=== PATIENT | female | born 1995 | race Caucasian/White ===

== ENCOUNTER 2019-03-29 18:21 | Emergency (ER) | payer OTHER ==
[~2019-03-29] VITALS: Ht 170.2 cm; Wt 79.5 kg
[~2019-03-29 18:21] MED LIST: CLIN-96 PO
[2019-03-29] MEDS ORDERED: iohexol 300mg/ml 100ml inj. ONE (19:01)
[2019-03-29 19:17] LABS: BASOPHILS % (AUTO) 0.5 % (0-1); EOSINOPHILS # (AUTO) 0.2 X10'3 (0-0.9); EOSINOPHILS % (AUTO) 2.9 % (0-6); HEMATOCRIT 36.7 % (35.0-45.0); HEMOGLOBIN 12.2 g/dl (12.0-16.0); LYMPHOCYTES # (AUTO) 2.4 X10'3 (1.1-4.8); LYMPHOCYTES % (AUTO) 31.9 % (21-51); MEAN CORPUSCULAR HGB CONC 33.2 g/dL (33.0-36.5); MEAN CORPUSCULAR VOLUME 81.4 FL (78-98); MEAN PLATELET VOLUME 9.3 FL (7.4-10.4); MONOCYTES # (AUTO) 0.7 X10'3 (0-0.9); MONOCYTES % (AUTO) 8.9 % (2-12); NEUTROPHILS # (AUTO) 4.2 X10'3 (1.8-7.7); NEUTROPHILS % (AUTO) 55.8 % (42-75); PLATELET COUNT 265 X10'3 (140-440); RED BLOOD COUNT 4.51 X10'6 (4.20-5.60); RED CELL DISTRIBUTION WIDTH 13.9 % (11.5-14.5); WHITE BLOOD COUNT 7.6 X10'3 (4.5-11.0)
[2019-03-29] MEDS ORDERED: ketorolac trometh. 30mg/ml inj. IM ONE (19:25)
[2019-03-29] MEDS: ketorolac trometh. 30mg/ml inj. IV ONE ×2 (19:26→19:29)
[2019-03-29 19:30] LABS: ALANINE AMINOTRANSFERASE 32 U/L (12-78); ALBUMIN 3.6 G/DL (3.4-5.0); ALKALINE PHOSPHATASE 92 IU/L (46-116); ANION GAP 9 (8-16); ASPARTATE AMINO TRANSFERASE 14 U/L (10-37); BILIRUBIN,TOTAL 0.3 MG/DL (0.1-1.0); BLOOD UREA NITROGEN 9 MG/DL (7-18); CALCIUM 8.6 MG/DL (8.5-10.1); CHLORIDE 109 MMOL/L (99-107); CREATININE 0.75 MG/DL (0.40-0.90); GLUCOSE 87 MG/DL (70-104); POTASSIUM 3.8 MMOL/L (3.5-5.1); SODIUM 140 MMOL/L (135-145); TOTAL CARBON DIOXIDE 21.8 MMOL/L (24-32); TOTAL PROTEIN 7.3 G/DL (6.4-8.2); eGFR > 90 ML/MIN
[2019-03-29 19:34] LABS: HCG SERUM QL NEGATIVE
[2019-03-29] MEDS ORDERED: IBUP-1985 PO (21:06)
[2019-03-29 21:15] VITALS: BP 122/69
== END 2019-03-29 21:17 | disposition home or self-care (01) ==
LOC: ER 18:21
DX: M54.2 Cervicalgia (principal); R10.31 Right lower quadrant pain; R10.11 Right upper quadrant pain; M54.9 Dorsalgia, unspecified; Z86.69 Personal history of other diseases of the nervous system and sense organs; Z88.0 Allergy status to penicillin; Z88.1 Allergy status to other antibiotic agents; Z79.2 Long term (current) use of antibiotics
CPT/HCPCS: 36415; 71045; 72125; 74177; 80053; 84703; 85025; 96372; 99284; J1885; Q9967

== ENCOUNTER 2023-04-20 09:40 | Emergency (ER) | payer MEDICAID, OTHER ==
[~2023-04-20] VITALS: Ht 172.7 cm; Wt 87.6 kg
[~2023-04-20 09:40] MED LIST changes: -CLIN-96 PO; +CLIN-97 PO; +IBUP-1985 PO
[2023-04-20 09:50] VITALS: BP 129/80
[2023-04-20] MEDS ORDERED: ketorolac tromethamine 15mg/ml inj. IM ONE (11:25)
[2023-04-20] MEDS ORDERED: CYCL-1 PO (12:38)
== END 2023-04-20 12:46 | disposition home or self-care (01) ==
LOC: ER 09:40
DX: S39.012A Strain of muscle, fascia and tendon of lower back, initial encounter (principal); Z88.0 Allergy status to penicillin; Z88.1 Allergy status to other antibiotic agents; Z79.899 Other long term (current) drug therapy; G40.909 Epilepsy, unspecified, not intractable, without status epilepticus; X58.XXXA Exposure to other specified factors, initial encounter; Y93.89 Activity, other specified; Y92.89 Other specified places as the place of occurrence of the external cause; Y99.8 Other external cause status
CPT/HCPCS: 72100; 96372; 99283; J1885

== ENCOUNTER → 2024-07-10 | Emergency (ER) | payer MEDICAID ==
[~2024-07-10] VITALS: Ht 170.2 cm; Wt 92.2 kg
[~2024-07-10] MED LIST changes: +CYCL-1 PO
[2024-07-11] MEDS: nitroGLYCERIN 0.4mg SUBLingual tab SL ONE (01:04)
[2024-07-11] MEDS: LIDOcaine 2% Viscous 15ml cup TP ONE (01:53)
[2024-07-11] MEDS: mag hydrox/Alum hydrox/simeth 30ml oral suspension PO ONE (01:53)
[2024-07-11 02:05] VITALS: PULSE 73
[2024-07-11] MEDS: nitroGLYCERIN 0.4mg SUBLingual tab SL PRN (02:31)
[2024-07-11 02:32] VITALS: BP 127/87; RESP 15; TEMP 97.9; O2SAT 100
== END | disposition home or self-care (01) ==
LOC: ER 23:18
DX: T18.128A Food in esophagus causing other injury, initial encounter (principal); G43.909 Migraine, unspecified, not intractable, without status migrainosus; Z88.0 Allergy status to penicillin; Z88.1 Allergy status to other antibiotic agents; Z91.041 Radiographic dye allergy status; Z79.2 Long term (current) use of antibiotics; Z79.899 Other long term (current) drug therapy; W44.F3XA Food entering into or through a natural orifice, initial encounter; Y93.89 Activity, other specified; Y92.89 Other specified places as the place of occurrence of the external cause; Y99.8 Other external cause status
CPT/HCPCS: 99285